=== PATIENT | female | born 1960 | race Caucasian/White ===

== ENCOUNTER 2025-04-09 15:54 | Emergency (ER) | payer BC, OTHER ==
[2025-04-09 18:20] VITALS: BP 133/70; PULSE 61
== END 2025-04-09 18:02 | disposition home or self-care (01) ==
LOC: JD.ED 15:54
DX: R42 Dizziness and giddiness (principal); Z79.899 Other long term (current) drug therapy; Z86.16 Personal history of COVID-19
CPT/HCPCS: 70450; 99283; A9270